=== PATIENT | male | born 1970 | race Caucasian/White ===

== ENCOUNTER 2017-07-02 09:11 | Emergency (ER) | payer SELFPAY ==
[2017-07-02 10:22] VITALS: BP 136/86
[2017-07-02] MEDS ORDERED: Cephalexin CAP* 500 MG PO ONE ×2 (10:46→10:47)
--- NOTE | 2017-07-02 10:53 | UC ---
Lower Extremity/Ankle HPI - HPI Summary HPI Summary: 46 yo male with right great toe pain x about a week 2 days ago red and swollen pain increased - History of Current Complaint Chief Complaint: UCSkin Stated Complaint: RIGHT BIG TOE SKIN COMPLAINT Time Seen by Provider: 07/02/17 10:21 Hx Obtained From: Patient Onset/Duration: Gradual Onset, Lasting Days, Worse Since - past 2 days Severity Initially: Mild Severity Currently: Moderate Pain Intensity: 6 Pain Scale Used: 0-10 Numeric Aggravating Factor(s): Standing, Ambulation Alleviating Factor(s): Rest, Elevation Able to Bear Weight: Yes - Allergies/Home Medications Allergies/Adverse Reactions: Allergies Allergy/AdvReac Type Severity Reaction Status Date / Time clonazepam Allergy Unknown Insomnia Verified 07/02/17 10:12 ANTIDEPRESSANT ? NAME Allergy Unknown Insomnia Uncoded 07/02/17 10:13 Home Medications: Home Medications Acetaminophen TAB* [Tylenol TAB*] 650 mg PO Q4H PRN 07/02/17 [History Confirmed 07/02/17] Atorvastatin* [Lipitor*] 5 mg PO DAILY 07/02/17 [History Confirmed 07/02/17] PMH/Surg Hx/FS Hx/Imm Hx Previously Healthy: Yes Endocrine History: Dyslipidemia Cardiovascular History: Hypertension - on no meds - Surgical History Surgical History: Yes Surgery Procedure, Year, and Place: vasectomy. sinus surgery - Family History Known Family History: Positive: Unknown - adopted - Social History Alcohol Use: None Alcohol Amount: h/o ETOH abuse none since 2008 Substance Use Type: None Smoking Status (MU): Former Smoker When Did the Patient Quit Smoking/Using Tobacco: 2008 Review of Systems Constitutional: Negative Skin: Negative Eyes: Negative ENT: Negative Respiratory: Negative Cardiovascular: Negative Gastrointestinal: Negative Genitourinary: Negative Motor: Negative Neurovascular: Negative Musculoskeletal: Negative Neurological: Negative Psychological: Negative Is Patient Immunocompromised?: No All Other Systems Reviewed And Are Negative: Yes Physical Exam Triage Information Reviewed: Yes Appearance: Well-Appearing, No Pain Distress, Well-Nourished Vital Signs: Initial Vital Signs Temp 97.8 F 07/02/17 10:16 Pulse 71 07/02/17 10:16 Resp 16 07/02/17 10:16 BP 136/86 07/02/17 10:16 Pulse Ox 97 07/02/17 10:16 Vital Signs Reviewed: Yes Eyes: Positive: Conjunctiva Clear ENT: Positive: Hearing grossly normal. Negative: Nasal congestion, Nasal drainage, Tonsillar swelling, Tonsillar exudate, Trismus, Hoarse voice Neck: Positive: Supple, Nontender Respiratory: Positive: Lungs clear, Normal breath sounds, No respiratory distress, No accessory muscle use Cardiovascular: Positive: RRR, No Murmur Musculoskeletal: Positive: Strength Intact Neurological: Positive: Alert Skin Exam: Other - see image Lower Extremity Course/Dx - Differential Dx/Diagnosis Provider Diagnoses: infected ingrown toenail Discharge - Discharge Plan Condition: Stable Disposition: HOME Prescriptions: Cephalexin CAP* [Keflex CAP*] 500 mg PO QID #28 cap Patient Education Materials: Ingrown Nail (ED) Referrals: No Primary Care Phys,NOPCP [Primary Care Provider] - Additional Instructions: continue warm soaks Images Feet (Multiple View): 1 - red/swollen
== END 2017-07-02 11:00 | disposition home or self-care (01) ==
LOC: UCCORT 09:11
DX: L60.0 Ingrowing nail (principal); Z88.8 Allergy status to other drugs, medicaments and biological substances; Z87.891 Personal history of nicotine dependence
CPT/HCPCS: 99212; A9270-GY; G0463